=== PATIENT | male | born 1985 | race Caucasian/White ===

== ENCOUNTER 2022-04-04 19:33 | Emergency (ER) | payer OTHER ==
[~2022-04-04] VITALS: Ht 175.3 cm; Wt 80.7 kg
== END 2022-04-04 22:36 | disposition home or self-care (01) ==
LOC: ER 19:33
DX: L60.0 Ingrowing nail (principal)

== ENCOUNTER 2022-04-15 18:51 | Emergency (ER) | payer OTHER ==
[~2022-04-15] VITALS: Ht 177.8 cm; Wt 81.6 kg
[2022-04-15] MEDS ORDERED: CEFADROXIL500 MG (19:22)
[2022-04-15] MEDS ORDERED: CLEOCIN HCL300 MG PO (21:30)
[2022-04-15] MEDS ORDERED: DEXAMETHASONE4 MG PO (21:31)
== END 2022-04-15 22:44 | disposition home or self-care (01) ==
LOC: ER 18:51
DX: L60.0 Ingrowing nail (principal)